=== PATIENT | female | born 1975 | race Two or more races ===

== ENCOUNTER 2023-10-14 18:42 | Emergency (ER) | payer OTHER ==
[~2023-10-14] VITALS: Ht 167.6 cm; Wt 59.0 kg
[2023-10-14 22:03] LABS: URINE APPEARANCE Clear; URINE BILIRRUBIN Negative (NEGATIVE); URINE BLOOD Large; URINE COLOR Yellow; URINE GLUCOSE Negative (NEGATIVE); URINE LEUKOCYTE Trace; URINE NITRATE Negative; URINE PROTEIN Negative (NEGATIVE)
[2023-10-14 22:06] LABS: URINE BACTERIA 23.9 uL (0.0-1933); URINE EPITHELIAL CELLS 10.9 uL (0.0-38.8); URINE RBC 805.4 uL (0.0-20.8); URINE WBC 8.4 uL (0.0-23.2)
[2023-10-14 22:06] LABS: HEMATOCRIT 35.7 % (36.0-45.00); HEMOGLOBIN 12.2 g/dL (12.0-15.00); MEAN CELL VOLUME 86.1 fL (80.00-100.00); MEAN CORPUSCULAR HEMOGLOBIN 29.4 pg (27.00-32.0); MEAN CORPUSCULAR HGB CONC 34.1 g/dl (32.0-36.0); PLATELET COUNT 278 K/uL (150-450); RED BLOOD COUNT 4.14 M/uL (4.00-6.00); RED CELL DISTRIBUTION WIDTH 13.2 % (11.5-14.5)
[2023-10-14 22:25] LABS: AMYLASE 54 U/L (25-115); LIPASE 30 U/L (13-75)
[2023-10-14 22:31] LABS: ALBUMIN 3.7 gm/dL (3.4-5.0); BILIRUBIN TOTAL 0.43 mg/dL (0.3-1.2); BILIRUBIN,CONJUGATED 0.15 mg/dL (0.0-0.2); BILIRUBIN,UNCONJUGATED 0.28 mg/dL (0.0-0.6); CALCIUM 8.9 mg/dL (8.5-10.1); CREATININE SERUM 0.57 mg/dL (0.55-1.02); GFR 113.69; POTASSIUM 3.25 mEq/L (3.5-5.1); TOTAL PROTEIN 7.2 gm/dL (6.4-8.2)
== END 2023-10-14 23:57 | disposition home or self-care (01) ==
LOC: ER 18:42
PROVIDERS: Emergency Medicine
DX: K80.50 Calculus of bile duct without cholangitis or cholecystitis without obstruction (principal)

== ENCOUNTER 2023-11-11 05:24 | Day surgery (SDC) | payer OTHER ==
[2023-11-11] MEDS ORDERED: BUPIVACAINE HCL/PF 0.5% 30ML ML ONE (07:15)
[2023-11-11] MEDS ORDERED: LIDOCAINE HCL/EPINEPHRINE 20 ML VIAL IJ ONE (07:15)
[2023-11-11] MEDS ORDERED: CEFOXITIN SODIUM 2,000 MG VIAL IV ONE (08:30)
[2023-11-11] MEDS ORDERED: TRAM1TAB98 PO (08:43)
[2023-11-11] MEDS ORDERED: PROTONIX40 MG PO (08:43)
[2023-11-11] MEDS ORDERED: ONDANSETRON ODT4 MG PO (08:43)
== END 2023-11-11 12:00 | disposition home or self-care (01) ==
LOC: CIR.AMB 05:24
PROVIDERS: ATTEND Surgery
DX: K81.1 Chronic cholecystitis (principal); I10 Essential (primary) hypertension; Z20.822 Contact with and (suspected) exposure to COVID-19